=== PATIENT | female | born 1995 | race Caucasian/White ===

== ENCOUNTER 2017-07-12 17:47 | Emergency (ER) | payer OTHER ==
--- NOTE | 2017-07-12 18:38 | RAD ---
INDICATION: Right elbow injury COMPARISON: None TECHNIQUE: AP, lateral, and oblique views were obtained. FINDINGS: There is a not significantly displaced fracture of the renal head and neck. There are no other fractures. The elbow articular is normally. There is a joint effusion. IMPRESSION: ESSENTIALLY NONDISPLACED RADIAL HEAD AND NECK FRACTURE WITH HEMARTHROSIS.
--- NOTE | 2017-07-12 18:58 | ED ---
Upper Extremity Pain - HPI Summary HPI Summary: 21F presents with right elbow injury. She fell on her elbow when she slipped in soccer. She has pain whenever she tries to move her arm. She denies any numbness or tingling. She states her pain is minimal when she has arm bent. She took alleve for pain. She denies any previous injury. She is right handed. She denies any other injury. - History of Current Complaint Chief Complaint: EDExtremityUpper Stated Complaint: RT FOREARM INJURY Time Seen by Provider: 07/12/17 18:00 Hx Last Menstrual Period: 05/06/13 - Allergies/Home Medications Allergies/Adverse Reactions: Allergies Allergy/AdvReac Type Severity Reaction Status Date / Time No Known Allergies Allergy Verified 05/27/13 22:25 PMH/Surg Hx/FS Hx/Imm Hx Endocrine/Hematology History: Denies: Hx Anticoagulant Therapy Cardiovascular History: Denies: Hx Hypertension Infectious Disease History: Denies: Traveled Outside the [place] in Last 30 Days - Family History Known Family History: Positive: Hypertension - Social History Alcohol Use: Occasionally Substance Use Type: Reports: None Smoking Status (MU): Never Smoked Tobacco Review of Systems Negative: Fever Negative: Chest Pain Negative: Shortness Of Breath Positive: Myalgia - right elbow pain All Other Systems Reviewed And Are Negative: Yes Physical Exam Triage Information Reviewed: Yes Vital Signs On Initial Exam: Initial Vitals Temp Pulse Resp BP Pulse Ox 98.8 F 111 16 114/77 98 07/12/17 17:51 07/12/17 17:51 07/12/17 17:51 07/12/17 17:51 07/12/17 17:51 Vital Signs Reviewed: Yes Appearance: Positive: Well-Appearing Skin: Positive: Warm, Dry Head/Face: Positive: Normal Head/Face Inspection Eyes: Positive: Normal, Conjunctiva Clear Respiratory/Lung Sounds: Positive: Clear to Auscultation, Breath Sounds Present Cardiovascular: Positive: Normal, RRR Musculoskeletal: Positive: Limited @ - right elbow, Other - good pulses, capillary refill<2 secs, tenderness over radial head Diagnostics - Vital Signs Vital Signs Temp Pulse Resp BP Pulse Ox 07/12/17 17:51 98.8 F 111 16 114/77 98 - Laboratory Lab Statement: Any lab studies that have been ordered have been reviewed, and results considered in the medical decision making process. - Radiology elbow Xray Interpretation: Positive (See Comments) - IMPRESSION: ESSENTIALLY NONDISPLACED RADIAL HEAD AND NECK FRACTURE WITH HEMARTHROSIS. Radiology Interpretation Completed By: Radiologist Course/Dx - Course Course Of Treatment: 21F presents with right elbow injury. She fell on her elbow when she slipped in soccer. She has pain whenever she tries to move her arm. She denies any numbness or tingling. She states her pain is minimal when she has arm bent. She took alleve for pain. She denies any previous injury. She is right handed. She denies any other injury. on exam tenderness over radial head on elbow, limited ROM with pain. xray shows radial head fracture. will treat with sling. patient understands and agrees with plan. - Diagnoses Differential Diagnosis/HQI/PQRI: Positive: Fracture (Closed), Strain, Sprain Provider Diagnoses: Right radial head fracture Discharge - Discharge Plan Condition: Good Disposition: HOME Patient Education Materials: Elbow Fracture (ED) Referrals: Non Staff,Doctor [Primary Care Provider] - Blayne Blake MD [Medical Doctor] - Additional Instructions: Keep in sling Take Tylenol and ibuprofen every 6 hours as needed for pain Ice area Follow up with ortho Return to ED if develop any new or worsening symptoms
[2017-07-12 19:09] VITALS: BP 124/80
== END 2017-07-12 19:14 | disposition home or self-care (01) ==
LOC: ED 17:47
DX: S52.124A Nondisplaced fracture of head of right radius, initial encounter for closed fracture (principal); S52.134A Nondisplaced fracture of neck of right radius, initial encounter for closed fracture; W01.0XXA Fall on same level from slipping, tripping and stumbling without subsequent striking against object, initial encounter; Y93.66 Activity, soccer; Y92.9 Unspecified place or not applicable
CPT/HCPCS: 99281